=== PATIENT | female | born 1935 | race Caucasian/White ===

== ENCOUNTER 2017-03-18 15:22 | Emergency (ER) | payer MEDICARE ==
[~2017-03-18 15:22] MED LIST: ALPR-409 PO; CETI10TA57 PO; DOCU100C33 PO; DULO30CA51 PO; FLUT9.9S NS; MENT118G TP; MULT-40 PO; OMEP1CAP2 PO; ONDA4TAB4 PO; TEMA30CA PO
[2017-03-18] MEDS ORDERED: HYDROCODONE/ACETAMINOPHEN 10/325 MG TAB ONE (16:34)
== END 2017-03-18 18:53 | disposition home or self-care (01) ==
LOC: EDH 15:22
DX: M19.012 Primary osteoarthritis, left shoulder (principal); M19.011 Primary osteoarthritis, right shoulder; M54.5 Low back pain; Z88.2 Allergy status to sulfonamides
CPT/HCPCS: 71046; 72072; 73030

== ENCOUNTER 2017-06-11 09:15 | Emergency (ER) | payer MEDICARE ==
[2017-06-11 12:00] LABS: BASOPHILS % (AUTO) 0.3 % (0.0-5.0); EOSINOPHILS % (AUTO) 1.5 % (0.0-8.0); HEMATOCRIT 40.9 % (36-48); LYMPHOCYTES % (AUTO) 15.3 % (21.0-51.0); MEAN CORPUSCULAR HEMOGLOBIN 32.1 pg (27.0-33.0); MEAN CORPUSCULAR HGB CONC 33.7 g/dL (32.0-36.0); MEAN CORPUSCULAR VOLUME 95.5 fL (79-99); MONOCYTES % (AUTO) 5.2 % (3.0-13.0); NEUTROPHILS % (AUTO) 77.7 % (40.0-77.0); NUCLEATED RED BLOOD CELLS 0.1 % (0.0-0.19); PLATELET COUNT (AUTO) 295 K/uL (130-400); RED BLOOD CELL COUNT(AUTO) 4.29 MIL/uL (4.00-5.50); RED CELL DISTRIBUTION WIDTH 13.8 % (11.0-15.5); WHITE BLOOD COUNT (AUTO) 7.7 K/uL (4.8-10.8)
[2017-06-11 12:17] LABS: CREATININE 0.7 mg/dL (0.5-1.5); POTASSIUM 3.4 mmol/L (3.5-5.1)
[2017-06-11 12:22] LABS: ALBUMIN 3.5 g/dL (3.5-5.0); BILIRUBIN,TOTAL 0.3 mg/dL (0.2-1.0)
[2017-06-11] MEDS ORDERED: HYDROCODONE/ACETAMINOPHEN 10/325 MG TAB ONE (12:43)
[2017-06-11 12:59] LABS: APPEARANCE,URINE Clear (CLEAR); BILIRUBIN,URINE Negative (NEGATIVE); COLOR,URINE Yellow (YELLOW); GLUCOSE, URINE (UA) Negative (NEGATIVE); KETONES,URINE Negative (NEGATIVE); LEUKOCYTE ESTERASE ,URINE Negative (NEGATIVE); NITRATE,URINE Negative (NEGATIVE); OCCULT BLOOD,URINE Trace (NEGATIVE); PH,URINE 7.5 (5.0-8.0); PROTEIN,URINE Negative (NEGATIVE); UROBILINOGEN,URINE 0.2 mg/dL (0.2-1.0)
[2017-06-11 13:11] LABS: BACTERIA,URINE Rare /HPF (None Seen); SQUAMOUS EPITHELIAL CELL,UR Rare /HPF (0-2); WBC,URINE 0-1 /HPF (0-1)
== END 2017-06-11 13:44 | disposition home or self-care (01) ==
LOC: EDH 09:15
DX: G89.29 Other chronic pain (principal); M25.512 Pain in left shoulder; M25.562 Pain in left knee; M25.561 Pain in right knee
CPT/HCPCS: 36415; 80053; 81001; 85025

== ENCOUNTER 2017-07-04 14:58 | Inpatient (IN) | payer MEDICARE ==
[2017-07-04] MEDS ORDERED: ONDANSETRON HCL MDV 20ML 2 MG/ML VIAL ONE (15:13)
[2017-07-04] MEDS ORDERED: SODIUM CHLORIDE 0.9% 1000ML 1,000 ML IV ONE ×3 (15:21→20:05)
[2017-07-04 15:46] LABS: CREATININE 0.9 mg/dL (0.5-1.5); POTASSIUM 3.3 mmol/L (3.5-5.1)
[2017-07-04 15:51] LABS: ALBUMIN 3.9 g/dL (3.5-5.0); BILIRUBIN,TOTAL 0.4 mg/dL (0.2-1.0); TOTAL PROTEIN, SERUM 7.9 g/dL (6.0-8.3)
[2017-07-04] MEDS ORDERED: FENTANYL CITRATE PF 50 MCG/1 ML 2ML VIAL ONE (16:02)
[2017-07-04 16:55] LABS: APPEARANCE,URINE CLEAR (CLEAR); BILIRUBIN,URINE SMALL (NEGATIVE); COLOR,URINE YELLOW (YELLOW); GLUCOSE, URINE (UA) NEGATIVE (NEGATIVE); KETONES,URINE 40 mg/dL (NEGATIVE); LEUKOCYTE ESTERASE ,URINE NEGATIVE (NEGATIVE); NITRATE,URINE NEGATIVE (NEGATIVE); OCCULT BLOOD,URINE MODERATE (NEGATIVE); PH,URINE 7.5 (5.0-8.0); PROTEIN,URINE 30 (NEGATIVE); UROBILINOGEN,URINE 0.2 mg/dL (0.2-1.0)
[2017-07-04] MEDS ORDERED: ONDANSETRON HCL MDV 20ML 2 MG/ML VIAL IVP PRN (17:30)
[2017-07-04] MEDS: SODIUM CHLORIDE 0.9% 1000ML 1,000 ML IV SCH ×5 (17:30→23:48)
[2017-07-04 17:57] LABS: BASOPHILS % (AUTO) 0.2 % (0.0-5.0); EOSINOPHILS % (AUTO) 0.1 % (0.0-8.0); HEMATOCRIT 39.4 % (36-48); LYMPHOCYTES % (AUTO) 15.8 % (21.0-51.0); MEAN CORPUSCULAR HGB CONC 34.3 g/dL (32.0-36.0); MEAN CORPUSCULAR VOLUME 96.1 fL (79-99); NEUTROPHILS % (AUTO) 77.9 % (40.0-77.0); PLATELET COUNT (AUTO) 327 K/uL (130-400); RED CELL DISTRIBUTION WIDTH 13.9 % (11.0-15.5); WHITE BLOOD COUNT (AUTO) 4.9 K/uL (4.8-10.8)
[2017-07-04] MEDS: PANTOPRAZOLE 40 MG/VIAL IVP SCH (18:00)
[2017-07-04] MEDS ORDERED: KETOROLAC TROMETHAMINE 30MG/ML ONE (18:16)
[2017-07-04 18:17] LABS: BACTERIA,URINE Rare /HPF (None Seen); WBC,URINE 0-1 /HPF (0-1)
[2017-07-04 18:19] LABS: MUCUS,URINE Rare LPF (None Seen); SQUAMOUS EPITHELIAL CELL,UR Rare /HPF (0-2)
[2017-07-04] MEDS ORDERED: ACETAMINOPHEN 325 MG TAB ONE (20:05)
[2017-07-04 20:18] VITALS: BP 142/88
[2017-07-04] MEDS ORDERED: POTASSIUM CHLORIDE 10% ELIXIR 20 MEQ/15 ML UDCUP PO PRN (21:00)
[2017-07-04] MEDS ORDERED: POTASSIUM CHLORIDE 20MEQ/100ML 100 ML IV ONE (21:25)
[2017-07-04] MEDS ORDERED: LIDOCAINE HCL-MPF 1% 2ML VIAL ONE (21:25)
[2017-07-04] MEDS: LIDOCAINE HCL-MPF 1% 2ML VIAL IV PRN (21:29)
[2017-07-04] MEDS: POTASSIUM CHLORIDE 10MEQ/100ML 100 ML IV PRN (21:30)
[2017-07-04] MEDS ORDERED: DIPHENHYDRAMINE HCL 25 MG CAPSULE ONE (21:35)
[2017-07-04] MEDS: DIPHENHYDRAMINE HCL 25 MG CAPSULE PO PRN (21:35)
[2017-07-04] MEDS ORDERED: METOPROLOL TARTRATE 1 MG/ML 5ML VIAL IV ONE (21:54)
[2017-07-04] MEDS: METOPROLOL TARTRATE 1 MG/ML 5ML VIAL IV SCH (22:15)
[2017-07-05 00:04] VITALS: BP 152/96
[2017-07-05] MEDS: SODIUM CHLORIDE 0.9% 1000ML 1,000 ML IV SCH ×5 (00:49→23:30)
[2017-07-05] MEDS ORDERED: KETOROLAC TROMETHAMINE 30MG/ML IV PRN (01:00)
[2017-07-05] MEDS ORDERED: MORPHINE SULFATE 4 MG/1ML SYG IVP PRN ×2 (02:30)
[2017-07-05] MEDS ORDERED: ACETAMINOPHEN 325 MG TAB ONE (02:34)
[2017-07-05] MEDS: ACETAMINOPHEN 325 MG TAB PO PRN ×2 (02:35→09:53)
[2017-07-05] MEDS ORDERED: DIPHENHYDRAMINE HCL 25 MG CAPSULE ONE (03:04)
[2017-07-05] MEDS: DIPHENHYDRAMINE HCL 25 MG CAPSULE PO PRN ×2 (03:11→09:52)
[2017-07-05 04:17] VITALS: BP 170/80
[2017-07-05] MEDS ORDERED: SODIUM CHLORIDE 0.9% 1000ML 1,000 ML IV ONE (06:05)
[2017-07-05 07:41] LABS: MEAN CORPUSCULAR HEMOGLOBIN 32.3 pg (27.0-33.0); MEAN CORPUSCULAR HGB CONC 33.6 g/dL (32.0-36.0); MEAN CORPUSCULAR VOLUME 96.2 fL (79-99); PLATELET COUNT (AUTO) 352 K/uL (130-400); RED BLOOD CELL COUNT(AUTO) 4.48 MIL/uL (4.00-5.50); RED CELL DISTRIBUTION WIDTH 14.1 % (11.0-15.5); WHITE BLOOD COUNT (AUTO) 6.2 K/uL (4.8-10.8)
[2017-07-05 08:12] LABS: CREATININE 0.7 mg/dL (0.5-1.5); POTASSIUM 3.4 mmol/L (3.5-5.1); THYROID STIMULATING HORMONE 0.26 uIU/mL (0.36-3.74)
[2017-07-05] MEDS ORDERED: PANTOPRAZOLE 40 MG/VIAL IVP SCH (09:00)
[2017-07-05] MEDS: PANTOPRAZOLE 40 MG/VIAL IVP SCH (09:00)
[2017-07-05 09:02] VITALS: BP 142/86
[2017-07-05] MEDS: METOPROLOL TARTRATE 25 MG TAB PO SCH ×2 (09:51→22:16)
[2017-07-05 12:00] VITALS: BP 149/88
[2017-07-05] MEDS ORDERED: MAGNESIUM CITRATE 296 ML SOLUTION PO PRN (12:00)
[2017-07-05] MEDS ORDERED: PHARMACY COMMUNICATION MISC SCH (15:15)
[2017-07-05] MEDS ORDERED: ZOLPIDEM TARTRATE 5 MG TAB PO PRN (16:00)
[2017-07-05] MEDS: HYDROCODONE/ACETAMINOPHEN 5/325 MG TAB PO PRN (18:19)
[2017-07-05] MEDS ORDERED: IOPAMIDOL-370 100 ML VIAL IV ONE (18:37)
[2017-07-05 20:22] VITALS: BP 166/84
[2017-07-05] MEDS: METOPROLOL TARTRATE 1 MG/ML 5ML VIAL IV SCH (22:15)
[2017-07-05 23:29] VITALS: BP 159/87
[2017-07-06] VITALS (11 sets, daily range): BP systolic 133–162; BP diastolic 58–108
[2017-07-06] MEDS: DIPHENHYDRAMINE HCL 25 MG CAPSULE PO PRN (03:39)
[2017-07-06 04:10] LABS: CREATININE 0.6 mg/dL (0.5-1.5); MAGNESIUM 1.7 mg/dL (1.80-2.40)
[2017-07-06 04:11] LABS: POTASSIUM 2.5 mmol/L (3.5-5.1)
[2017-07-06 04:24] LABS: MEAN CORPUSCULAR HEMOGLOBIN 32.6 pg (27.0-33.0); MEAN CORPUSCULAR HGB CONC 34.5 g/dL (32.0-36.0); MEAN CORPUSCULAR VOLUME 94.6 fL (79-99); NUCLEATED RED BLOOD CELLS 0.1 % (0.0-0.19); PLATELET COUNT (AUTO) 322 K/uL (130-400); RED BLOOD CELL COUNT(AUTO) 4.76 MIL/uL (4.00-5.50); RED CELL DISTRIBUTION WIDTH 13.8 % (11.0-15.5); WHITE BLOOD COUNT (AUTO) 5.4 K/uL (4.8-10.8)
[2017-07-06 04:40] LABS: LYMPHOCYTES % (MANUAL) 30 % (22-44); MAN.DIFF COMMENT-IMPRESSION MANUAL DIFFERENTIAL; MONOCYTES % (MANUAL) 6 % (2-9); PLATELET MORPHOLOGY COMMENT ADEQUATE; SEGMENTED NEUTROPHILS % 64 % (40-70)
[2017-07-06] MEDS: POTASSIUM CHLORIDE 10 MEQ/TAB.SR PO PRN ×5 (04:49→18:07)
[2017-07-06] MEDS: HYDROCODONE/ACETAMINOPHEN 5/325 MG TAB PO PRN ×2 (06:41→18:14)
[2017-07-06] MEDS ORDERED: MAGNESIUM 2GM PREMIX 50ML 50 ML IV PRN (08:30)
[2017-07-06] MEDS: PANTOPRAZOLE 40 MG/VIAL IVP SCH (08:56)
[2017-07-06] MEDS: METOPROLOL TARTRATE 25 MG TAB PO SCH ×2 (08:56→20:38)
[2017-07-06] MEDS: ENOXAPARIN SODIUM 40 MG/0.4 ML SYRINGE SQ SCH (09:02)
[2017-07-06] MEDS: LIDOCAINE HCL-MPF 1% 2ML VIAL IV PRN (09:28)
[2017-07-06] MEDS: POTASSIUM CHLORIDE 10MEQ/100ML 100 ML IV PRN (09:28)
[2017-07-06] MEDS: SODIUM CHLORIDE 0.9% 1000ML 1,000 ML IV SCH (09:30)
[2017-07-06] MEDS ORDERED: BELSOMRA 20 MG PO SCH (21:00)
[2017-07-06] MEDS ORDERED: COMPOUND PO NARCOTIC 1 EACH PO SCH (21:00)
[2017-07-07] MEDS: DIPHENHYDRAMINE HCL 25 MG CAPSULE PO PRN (00:20)
[2017-07-07 03:44] LABS: CREATININE 0.6 mg/dL (0.5-1.5); POTASSIUM 4.4 mmol/L (3.5-5.1)
[2017-07-07 03:46] VITALS: BP 160/80
[2017-07-07 03:53] LABS: HEMATOCRIT 44.2 % (36-48); MEAN CORPUSCULAR HEMOGLOBIN 32.1 pg (27.0-33.0); MEAN CORPUSCULAR HGB CONC 33.8 g/dL (32.0-36.0); NUCLEATED RED BLOOD CELLS 0.1 % (0.0-0.19); RED BLOOD CELL COUNT(AUTO) 4.65 MIL/uL (4.00-5.50); RED CELL DISTRIBUTION WIDTH 14.1 % (11.0-15.5); WHITE BLOOD COUNT (AUTO) 6.9 K/uL (4.8-10.8)
[2017-07-07 03:55] LABS: PLATELET COUNT (AUTO) 408 K/uL (130-400)
[2017-07-07] MEDS: HYDROCODONE/ACETAMINOPHEN 5/325 MG TAB PO PRN (05:37)
[2017-07-07 07:10] VITALS: BP 165/94
[2017-07-07] MEDS: ENOXAPARIN SODIUM 40 MG/0.4 ML SYRINGE SQ SCH (08:00)
[2017-07-07] MEDS: METOPROLOL TARTRATE 25 MG TAB PO SCH (08:00)
[2017-07-07] MEDS ORDERED: PANTOPRAZOLE SODIUM 40 MG TABLET.DR PO SCH (09:00)
[2017-07-07 11:34] VITALS: BP 143/77
== END 2017-07-07 13:18 | disposition home or self-care (01) | DRG 641 ==
LOC: EDH 14:58 → OBSVTOIN 17:00 → EDHIP 17:00 → 4CH 07-05 07:55 → 2AH 07-05 16:48 → 2CH 07-06 02:55 → 2DH 07-06 14:19
PROVIDERS: ADMIT Internal Medicine Hematology & Oncology; ATTEND Internal Medicine Hematology & Oncology
DX: E87.1 Hypo-osmolality and hyponatremia (principal); E86.0 Dehydration; I47.1 Supraventricular tachycardia; I35.1 Nonrheumatic aortic (valve) insufficiency; F19.20 Other psychoactive substance dependence, uncomplicated; R11.2 Nausea with vomiting, unspecified; E87.8 Other disorders of electrolyte and fluid balance, not elsewhere classified; E87.6 Hypokalemia; F32.9 Major depressive disorder, single episode, unspecified; G89.4 Chronic pain syndrome; K52.9 Noninfective gastroenteritis and colitis, unspecified; M19.90 Unspecified osteoarthritis, unspecified site; Z90.11 Acquired absence of right breast and nipple; Z90.12 Acquired absence of left breast and nipple; Z91.81 History of falling; Z88.1 Allergy status to other antibiotic agents; Z88.0 Allergy status to penicillin; Z88.8 Allergy status to other drugs, medicaments and biological substances; Z85.3 Personal history of malignant neoplasm of breast
CPT/HCPCS: 36415; 71045; 71275; 74021; 80048; 80053; 81001; 83690; 83735; 84439; 84443; 84484; 85025; 85027; 85378; 93005; 93306; 93880; 93970; C9113; J1650; J1885; J3010; J3475; J3480; J3490; J7030; Q0163; Q9967

== ENCOUNTER 2018-06-06 16:51 | Observation (INO) | payer MEDICARE ==
[~2018-06-06] VITALS: Ht 160 cm; Wt 53.6 kg
[~2018-06-06 16:51] MED LIST changes: -ALPR-409 PO; -DOCU100C33 PO; +FENT-77 TD; +FLUT16H NASAL; -FLUT9.9S NS; +GABA-529 PO; +HYDR-4068 PO; -MENT118G TP; -MULT-40 PO; -OMEP1CAP2 PO; +OMEP20CA10 PO; -ONDA4TAB4 PO; -TEMA30CA PO; +TRAZ150T79 PO
[2018-06-06 17:42] LABS: BASOPHILS % (AUTO) 0.4 % (0.0-5.0); EOSINOPHILS % (AUTO) 0.1 % (0.0-8.0); HEMATOCRIT 46.5 % (36-48); LYMPHOCYTES % (AUTO) 8.4 % (21.0-51.0); MEAN CORPUSCULAR HEMOGLOBIN 32.6 pg (27.0-33.0); MEAN CORPUSCULAR HGB CONC 34.5 g/dL (32.0-36.0); MEAN CORPUSCULAR VOLUME 94.5 fL (79-99); MONOCYTES % (AUTO) 7.1 % (3.0-13.0); NUCLEATED RED BLOOD CELLS 0.1 % (0.0-0.19); PLATELET COUNT (AUTO) 239 K/uL (130-400); RED BLOOD CELL COUNT(AUTO) 4.92 MIL/uL (4.00-5.50); RED CELL DISTRIBUTION WIDTH 13.8 % (11.0-15.5); WHITE BLOOD COUNT (AUTO) 13.9 K/uL (4.8-10.8)
[2018-06-06 17:51] LABS: CREATININE 0.8 mg/dL (0.5-1.5); POTASSIUM 3.6 mmol/L (3.5-5.1)
[2018-06-06 17:56] LABS: ALBUMIN 3.9 g/dL (3.5-5.0); BILIRUBIN,TOTAL 0.5 mg/dL (0.2-1.0); TOTAL PROTEIN, SERUM 7.3 g/dL (6.0-8.3)
[2018-06-06 18:03] LABS: APPEARANCE,URINE Clear (CLEAR); BILIRUBIN,URINE Negative (NEGATIVE); COLOR,URINE Yellow (YELLOW); GLUCOSE, URINE (UA) Negative (NEGATIVE); KETONES,URINE 15 mg/dL (NEGATIVE); LEUKOCYTE ESTERASE ,URINE Trace (NEGATIVE); NITRATE,URINE Negative (NEGATIVE); OCCULT BLOOD,URINE Negative (NEGATIVE); PROTEIN,URINE Negative (NEGATIVE); UROBILINOGEN,URINE 0.2 mg/dL (0.2-1.0)
[2018-06-06 18:11] LABS: RBC,URINE 0-1 /HPF (0-1)
[2018-06-06 18:13] LABS: BACTERIA,URINE Few /HPF (None Seen); MUCUS,URINE Rare LPF (None Seen); SQUAMOUS EPITHELIAL CELL,UR Rare /HPF (0-2)
[2018-06-06] MEDS ORDERED: LEVOFLOXACIN 500 MG/D5W 100 ML 100 ML ONE (18:44)
[2018-06-06] MEDS ORDERED: TRAZODONE HCL 50 MG TAB ONE (20:58)
[2018-06-06] MEDS ORDERED: ALPRAZOLAM 0.25 MG TABLET ONE (20:59)
[2018-06-06] MEDS ORDERED: DIAZEPAM 5 MG TABLET PO PRN (21:15)
[2018-06-06] MEDS ORDERED: HYDRALAZINE HCL 20 MG/ML VIAL IV PRN (21:15)
[2018-06-06] MEDS ORDERED: ONDANSETRON HCL 4 MG/2 ML VIAL IV PRN (21:15)
[2018-06-06] MEDS ORDERED: ACETAMINOPHEN 325 MG TAB PO PRN ×2 (21:15)
[2018-06-06 23:15] VITALS: BP 146/99
[2018-06-07 03:35] VITALS: BP 150/88
[2018-06-07 08:00] VITALS: BP 182/60
[2018-06-07] MEDS ORDERED: FAMOTIDINE/PF 20 MG/2 ML VIAL IV SCH (09:00)
[2018-06-07] MEDS ORDERED: METOPROLOL TARTRATE 25 MG TAB PO SCH ×2 (09:00→21:00)
[2018-06-07] MEDS ORDERED: ENOXAPARIN SODIUM 30 MG/0.3 ML SQ SCH (09:00)
[2018-06-07] MEDS: ALPRAZOLAM 0.25 MG TABLET PO SCH ×2 (09:06→14:33)
[2018-06-07 11:00] VITALS: BP 138/88
[2018-06-07] MEDS ORDERED: METO25TA6 PO (12:14)
--- NOTE | 2018-06-07 14:00 | NUR ---
CM IA/DC NOTE PT SEEN WITH DAUGHTER JADEN AT BEDSIDE, PT RESPONSIVE BUT NON VERBAL, KIRAN ALL DME AT HOME, 24 HR CAREGHAILY WATERS IS HOEM WITH CONTINUED FAMLY SUPPORT Addendum: 06/09/18 at 0854 by DAVID LONG RN CM Amended: Links added.
--- NOTE | 2018-06-07 16:00 | NUR ---
PATIENT AND DAUGHTER GIVEN DISCHARGE INSTRUCTIONS AND VERBALIZE UNDERSTANDING, IV REMOVED WITH CATHETER INTACT PRESSURE HELD ON SITE TILL BLEEDING STOP AND THEN SITE DRESSED. TELEMETRY UNIT NOTIFIED OF PATIENT DISCHARGE AND MONITOR REMOVED. DAUGHTER DRESSED PATIENT AND BELONGING GATHERED .NO QUESTIONS OR CONCERNS AT THIS TIME . PATIENT TRANSPORTED VIA WHEELCHAIR TO [facility] WITH DAUGHTER BY SIDE AND LEFT FOR HOME
[2018-06-07] MEDS ORDERED: TRAZODONE HCL 100 MG TABLET PO SCH (21:00)
== END 2018-06-07 15:35 | disposition home or self-care (01) ==
LOC: EDH 16:51 → INTOOBSV 19:20 → EDHIP 19:20 → 3AH 23:08
PROVIDERS: ADMIT Internal Medicine; ATTEND Internal Medicine
DX: T14.8XXA Other injury of unspecified body region, initial encounter (principal); M19.90 Unspecified osteoarthritis, unspecified site; E11.9 Type 2 diabetes mellitus without complications; J45.909 Unspecified asthma, uncomplicated; Z85.3 Personal history of malignant neoplasm of breast; G89.4 Chronic pain syndrome; K21.9 Gastro-esophageal reflux disease without esophagitis; J44.9 Chronic obstructive pulmonary disease, unspecified; M85.80 Other specified disorders of bone density and structure, unspecified site; F11.10 Opioid abuse, uncomplicated; W18.30XA Fall on same level, unspecified, initial encounter; Y93.89 Activity, other specified; Y92.89 Other specified places as the place of occurrence of the external cause; Y99.8 Other external cause status; Z79.899 Other long term (current) drug therapy; Z82.0 Family history of epilepsy and other diseases of the nervous system; Z82.3 Family history of stroke; Z82.49 Family history of ischemic heart disease and other diseases of the circulatory system; Z83.3 Family history of diabetes mellitus; R00.0 Tachycardia, unspecified; Z98.41 Cataract extraction status, right eye; Z98.42 Cataract extraction status, left eye
CPT/HCPCS: 36415; 70450; 71045; 72125; 72170; 73030; 73130; 73562; 80053; 81001; 83605; 85025; 87040 ×2; 87088; 96372; 96374; 99284; G0378 ×20; J1650; J1956; J3490